=== PATIENT | female | born 1955 | race Caucasian/White ===

== ENCOUNTER 2019-06-24 12:15 | Emergency (ER) | payer OTHER ==
[~2019-06-24] VITALS: Ht 165.1 cm; Wt 59.0 kg
[~2019-06-24 12:15] MED LIST: NORVASC5 MG PO
[2019-06-24] MEDS ORDERED: WELLBUTRIN 100100 MG PO (12:30)
[2019-06-24] MEDS ORDERED: LISINOPRIL-HCT1 EACH PO (12:30)
[2019-06-24 13:03] LABS: INFLUENZA A ANTIGEN Negative (Negative); INFLUENZA B ANTIGEN Negative (Negative)
[2019-06-24] MEDS ORDERED: PROAIR HFA8.5 GM INH (13:23)
[2019-06-24] MEDS ORDERED: MEDROLDOSEPACK PO (13:23)
[2019-06-24] MEDS ORDERED: TESSALON PERLE100 MG PO (13:23)
[2019-06-24] MEDS ORDERED: TYLENOL WITH CO1 TA1 PO (13:23)
[2019-06-24] MEDS ORDERED: ZPAK PO (13:23)
[2019-06-24 13:42] VITALS: BP 127/70
== END 2019-06-24 14:02 | disposition home or self-care (01) ==
LOC: M.ERS 12:15
PROVIDERS: Family Medicine
DX: J20.9 Acute bronchitis, unspecified (principal); I10 Essential (primary) hypertension; Z88.1 Allergy status to other antibiotic agents; Z88.8 Allergy status to other drugs, medicaments and biological substances

== ENCOUNTER 2020-06-28 12:51 | Emergency (ER) | payer OTHER ==
[~2020-06-28] VITALS: Ht 165.1 cm; Wt 61.2 kg
[~2020-06-28 12:51] MED LIST changes: +LISINOPRIL-HCT1 EACH PO; +MEDROLDOSEPACK PO; +PROAIR HFA8.5 GM INH; +TESSALON PERLE100 MG PO; +TYLENOL WITH CO1 TA1 PO; +WELLBUTRIN 100100 MG PO; +ZPAK PO
[2020-06-28 13:13] LABS: URINE BLOOD NEGATIVE (Negative); URINE CLARITY CLEAR; URINE COLOR YELLOW; URINE GLUCOSE-RANDOM NEGATIVE (Negative); URINE KETONES TRACE (Negative); URINE LEUKOCYTES-REFLEX NEGATIVE (Negative); URINE NITRITE-REFLEX NEGATIVE (Negative); URINE PROTEIN TRACE (Negative); URINE SPECIFIC GRAVITY >= 1.030 (1.005-1.030); URINE UROBILINOGEN 0.2 E.U./dl (0.2-1.0)
[2020-06-28 13:16] LABS: ICTOTEST (BILI CONFIRMATORY) Negative (Negative); URINE BILIRUBIN 1+ (Negative)
[2020-06-28 13:32] LABS: ABSOLUTE BASOPHILS 0.1 thou/uL (0.0-0.2); ABSOLUTE EOSINOPHILS 0.1 thou/uL (0.0-0.7); ABSOLUTE LYMPHOCYTES 1.8 thou/uL (0.8-5.3); ABSOLUTE MONOCYTES 0.5 thou/uL (0.0-1.2); ABSOLUTE NEUTROPHILS 8.2 thou/uL (1.6-8.1); BASOPHILS 0.5 %; HEMATOCRIT 45.6 % (37.0-47.0); HEMOGLOBIN 15.5 gm/dL (12.0-15.0); LYMPHOCYTES 16.6 %; MCH 29.2 pg (26.0-34.0); MCHC 34.1 g/dL (28.0-37.0); MCV 85.8 fL (80.0-100.0); MPV 8.1 fl. (7.2-11.1); NUCLEATED RBCS 0 /100WBC; PLATELET COUNT* 205 thou/uL (150-400); POLYS 76.9 %; RBC 5.31 mil/uL (4.20-5.00); WBC 10.7 thou/uL (4.0-11.0)
[2020-06-28 13:39] LABS: CALCIUM 9.1 mg/dL (8.5-10.1); CREATININE 0.9 mg/dL (0.6-1.3); POTASSIUM 3.3 mmol/L (3.5-5.1)
[2020-06-28 13:49] LABS: ALBUMIN 3.5 g/dL (3.4-5.0); TOTAL BILIRUBIN 0.5 mg/dL (<0.1-1.0); TOTAL PROTEIN 7.6 g/dL (6.4-8.2)
[2020-06-28] MEDS ORDERED: ONDANSETRON ODT4 MG PO (15:40)
[2020-06-28] MEDS ORDERED: FLAGYL500 M1 PO (15:40)
[2020-06-28] MEDS ORDERED: CIPRO500 MG PO (15:40)
[2020-06-28] MEDS ORDERED: APAP W/CODEINE1 TA2 PO (15:40)
[2020-06-28 15:56] VITALS: BP 142/70
--- NOTE | 2020-06-28 16:37 | EKG ---
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: MAGAÑA : 1955 Requested By: Goyo Price Order Number: [id number] MD: Armando Bruce Measurements Intervals [place] Rate: 107 P: 77 [place]: 154 QRS: -12 QRSD: 80 T: 76 QT: 337 QTc: 450 Interpretive Statements Sinus tachycardia Abnormal R-wave progression, early transition No previous ECG available for comparison Electronically Signed On 06-28-2020 16:37:18 [employer]NAGER INSPECTION by Armando Bruce [email or web address] <ELECTRONICALLY SIGNED> By: Armando Bruce MD, [facility] 06/28/20 1637 1315 1315 Armando Bruce MD, [facility] /EPI
== END 2020-06-28 15:57 | disposition home or self-care (01) ==
LOC: M.ERS 12:51
PROVIDERS: Physician Assistant
DX: K57.32 Diverticulitis of large intestine without perforation or abscess without bleeding (principal); I10 Essential (primary) hypertension; Z79.899 Other long term (current) drug therapy; Z88.1 Allergy status to other antibiotic agents

== ENCOUNTER 2020-06-30 15:45 | Inpatient (IN) | payer OTHER ==
[~2020-06-30] VITALS: Ht 165.1 cm; Wt 61.2 kg
[~2020-06-30 15:45] MED LIST changes: +APAP W/CODEINE1 TA2 PO; +CIPRO500 MG PO; +FLAGYL500 M1 PO; +ONDANSETRON ODT4 MG PO
[2020-06-30 15:56] VITALS: BP 122/63
[2020-06-30] MEDS ORDERED: PRIMATENE MIS11.7 GM INH (16:03)
[2020-06-30 16:15] LABS: URINE BLOOD NEGATIVE (Negative); URINE CLARITY CLEAR; URINE COLOR YELLOW; URINE GLUCOSE-RANDOM NEGATIVE (Negative); URINE KETONES TRACE (Negative); URINE LEUKOCYTES-REFLEX TRACE (Negative); URINE NITRITE-REFLEX NEGATIVE (Negative); URINE PROTEIN NEGATIVE (Negative); URINE SPECIFIC GRAVITY >= 1.030 (1.005-1.030); URINE UROBILINOGEN 0.2 E.U./dl (0.2-1.0)
[2020-06-30 16:16] LABS: ICTOTEST (BILI CONFIRMATORY) Negative (Negative); URINE BILIRUBIN 2+ (Negative)
[2020-06-30 16:21] LABS: SQUAMOUS >10 Many /LPF (0-3)
[2020-06-30 16:22] LABS: URINE RBC 0-2 Rare /HPF (0-2); URINE WBC-REFLEX 0-5 Rare /HPF (0-5)
[2020-06-30 16:23] LABS: CRYSTALS None Seen /LPF (None Seen); HYALINE CASTS 4-10 Moderate /LPF (None Seen); MUCUS 4-6 Moderate strn/LPF (None Seen)
[2020-06-30 16:27] LABS: ABSOLUTE EOSINOPHILS 0.1 thou/uL (0.0-0.7); ABSOLUTE LYMPHOCYTES 1.4 thou/uL (0.8-5.3); ABSOLUTE MONOCYTES 0.4 thou/uL (0.0-1.2); ABSOLUTE NEUTROPHILS 5.4 thou/uL (1.6-8.1); BASOPHILS 0.5 %; EOSINOPHILS 1.4 %; HEMATOCRIT 44.2 % (37.0-47.0); LYMPHOCYTES 19.3 %; MCV 85.3 fL (80.0-100.0); MONOCYTES 5.5 %; MPV 8.1 fl. (7.2-11.1); NUCLEATED RBCS 0 /100WBC; PLATELET COUNT* 237 thou/uL (150-400); POLYS 73.3 %; RBC 5.17 mil/uL (4.20-5.00); RDW-CV 14.1 % (10.5-14.5); WBC 7.3 thou/uL (4.0-11.0)
[2020-06-30 16:33] LABS: CALCIUM 9.4 mg/dL (8.5-10.1); POTASSIUM 3.3 mmol/L (3.5-5.1)
[2020-06-30 16:38] LABS: ALBUMIN 3.6 g/dL (3.4-5.0); TOTAL BILIRUBIN 0.3 mg/dL (<0.1-1.0); TOTAL PROTEIN 7.4 g/dL (6.4-8.2)
[2020-06-30 18:02] VITALS: BP 115/71
[2020-06-30 21:30] VITALS: BP 118/72
[2020-07-01 06:30] LABS: ABSOLUTE EOSINOPHILS 0.2 thou/uL (0.0-0.7); ABSOLUTE LYMPHOCYTES 2.3 thou/uL (0.8-5.3); ABSOLUTE MONOCYTES 0.6 thou/uL (0.0-1.2); ABSOLUTE NEUTROPHILS 2.9 thou/uL (1.6-8.1); BASOPHILS 0.6 %; EOSINOPHILS 2.9 %; HEMATOCRIT 40.3 % (37.0-47.0); HEMOGLOBIN 13.2 gm/dL (12.0-15.0); LYMPHOCYTES 38.9 %; MCH 28.8 pg (26.0-34.0); MCHC 32.8 g/dL (28.0-37.0); MCV 87.7 fL (80.0-100.0); MONOCYTES 9.5 %; MPV 8.3 fl. (7.2-11.1); NUCLEATED RBCS 0 /100WBC; PLATELET COUNT* 214 thou/uL (150-400); POLYS 48.1 %; RBC 4.59 mil/uL (4.20-5.00); RDW-CV 14.2 % (10.5-14.5)
[2020-07-01 06:45] LABS: CALCIUM 8.7 mg/dL (8.5-10.1); CREATININE 0.8 mg/dL (0.6-1.3); POTASSIUM 3.5 mmol/L (3.5-5.1)
[2020-07-01 08:00] VITALS: BP 115/70
[2020-07-01 16:00] VITALS: BP 129/79
[2020-07-01 20:00] VITALS: BP 135/82
[2020-07-02 05:50] LABS: ALBUMIN 2.8 g/dL (3.4-5.0); CALCIUM 7.9 mg/dL (8.5-10.1); CREATININE 0.8 mg/dL (0.6-1.3); TOTAL BILIRUBIN 0.2 mg/dL (<0.1-1.0); TOTAL PROTEIN 5.7 g/dL (6.4-8.2)
[2020-07-02 05:54] LABS: ABSOLUTE EOSINOPHILS 0.1 thou/uL (0.0-0.7); ABSOLUTE LYMPHOCYTES 1.7 thou/uL (0.8-5.3); ABSOLUTE MONOCYTES 0.5 thou/uL (0.0-1.2); ABSOLUTE NEUTROPHILS 3.9 thou/uL (1.6-8.1); BASOPHILS 0.3 %; EOSINOPHILS 2.2 %; HEMATOCRIT 35.6 % (37.0-47.0); HEMOGLOBIN 12.1 gm/dL (12.0-15.0); LYMPHOCYTES 26.7 %; MCH 29.2 pg (26.0-34.0); MCV 85.8 fL (80.0-100.0); MONOCYTES 8.6 %; MPV 8.5 fl. (7.2-11.1); NUCLEATED RBCS 0 /100WBC; PLATELET COUNT* 175 thou/uL (150-400); POLYS 62.2 %; RBC 4.15 mil/uL (4.20-5.00); WBC 6.4 thou/uL (4.0-11.0)
[2020-07-02 08:15] VITALS: BP 146/90
[2020-07-02 10:37] VITALS: BP 167/89
[2020-07-02] MEDS ORDERED: PROTONIX40 M4 PO (11:52)
[2020-07-02 12:32] VITALS: BP 167/89
[2020-07-02 13:37] VITALS: BP 167/89
== END 2020-07-02 13:35 | disposition home or self-care (01) | DRG 392 ==
LOC: M.ERS 15:45 → M.TBA-ER 16:34 → M.3W 16:34
PROVIDERS: Physician Assistant; ADMIT Internal Medicine; ATTEND Internal Medicine
DX: K57.32 Diverticulitis of large intestine without perforation or abscess without bleeding (principal); I10 Essential (primary) hypertension; F17.210 Nicotine dependence, cigarettes, uncomplicated; E86.0 Dehydration; E87.6 Hypokalemia; Z20.822 Contact with and (suspected) exposure to COVID-19; Z88.1 Allergy status to other antibiotic agents; Z79.899 Other long term (current) drug therapy